=== PATIENT | male | born 1980 | race Caucasian/White ===

== ENCOUNTER → 2018-11-27 | Outpatient (CLI) | payer OTHER ==
[~2018-11-27] MED LIST: IOHEXOL 240 MG/ML 50ML VIAL. ONE; IOHEXOL 300 MG/ML 75 ML VIAL. IV ONE
--- NOTE | 2018-11-27 16:52 | RAD ---
Exam: CT abdomen and pelvis with IV contrast INDICATION: Lower abdominal pain TECHNIQUE: Sequential axial images through the abdomen and pelvis obtained following the administration of 75 mL of Omnipaque 300 IV contrast. Sagittal and coronal reformatted images were reconstructed from the axial data and reviewed. Comparisons: None FINDINGS: Heart size is normal. No pericardial effusion. Visualized lung bases are clear. No pleural effusion. Liver, spleen, pancreas, gallbladder and adrenals are unremarkable. Kidneys demonstrate symmetric enhancement. No perinephric inflammation or hydronephrosis. No renal or ureteral calculi are identified. Bladder is distended and appears thin walled. Prostate is not enlarged. Large and small bowel are unremarkable. No obstruction. Appendix normal. No free intra-abdominal air or fluid. Abdominal aorta has a normal course and caliber. Abdominal vasculature is patent. No enlarged abdominal lymph nodes are identified. No suspicious osseous lesions or acute fractures. IMPRESSION: No acute process identified within the abdomen or pelvis. Exposure: One or more of the following in the visualized dose reduction techniques were utilized for this examination: 1. Automated exposure control 2. Adjustment of the MA and/or KV according to patient size 3. Use of iterative of reconstructive technique Electronically signed by: Darryl Seymour MD (11/27/2018 4:49 PM) [facility]
== END | disposition home or self-care (01) ==
LOC: CT 15:17
PROVIDERS: ATTEND Physician Assistant
DX: N32.89 Other specified disorders of bladder (principal)
CPT/HCPCS: 74177; Q9967